=== PATIENT | female | born 1965 | race Caucasian/White ===

== ENCOUNTER 2016-07-18 17:10 | Emergency (ER) | payer SELFPAY ==
[~2016-07-18] VITALS: Ht 154.9 cm; Wt 74.8 kg
[~2016-07-18 17:10] MED LIST: MOTRIN600 MG PO
[2016-07-18 18:10] VITALS: BP 129/94
--- NOTE | 2016-07-18 20:58 | NUR ---
PT TAKEN TO BED 8
--- NOTE | 2016-07-18 21:10 | NUR ---
50Y/F PATIENT PRESENTS TO ED WITH C/O ABDOMINAL PAIN X 1 DAY . PT STATES PAIN STARTED YESTERDAY, WENT TO SEE DOCTOR AT URGENT CARE, DOCTOR REFERRED PT. TO ED. DENIES N/V/D; SKIN IS PINK/WARM/DRY; AAOX4 WITH EVEN AND STEADY GAIT; LUNGS CLEAR BL; HR EVEN AND REGULAR; PT DENIES ANY FEVER, CP, SOB, OR COUGH AT THIS TIME; PATIENT STATES PAIN OF 9/10 AT THIS TIME; VSS; PATIENT POSITIONED FOR COMFORT; HOB ELEVATED; BEDRAILS UP X2; BED DOWN. ER MD MADE AWARE OF PT STATUS.
[2016-07-18] MEDS ORDERED: ONDANSETRON 4 MG/2 ML VIAL IVP ONE (22:20)
[2016-07-18] MEDS ORDERED: MORPHINE SULFATE 4 MG/ML SYR IVP ONE (22:20)
--- NOTE | 2016-07-18 22:46 | NUR ---
Ultrasound at bedside.
--- NOTE | 2016-07-18 23:52 | NUR ---
Patient discharged with v/s stable. Written and verbal after care instructions given and explained. Patient alert, oriented and verbalized understanding of instructions. Ambulatory with steady gait. All questions addressed prior to discharge. ID band removed. Patient advised to follow up with PMD. Rx of ONDASETRON 4 MG, NORCO 5/325MG given. Patient educated on indication of medication including possible reaction and side effects. Opportunity to ask questions provided and answered.
[2016-07-18 23:55] VITALS: BP 129/85
== END 2016-07-18 23:52 | disposition home or self-care (01) ==
LOC: MED 17:10
DX: K80.20 Calculus of gallbladder without cholecystitis without obstruction (principal)
CPT/HCPCS: 36415; 76705; 80053; 81001; 81025; 82150; 83690; 84703; 85025; 96374; 96375; 99285; J2270; J2405; Q0092